=== PATIENT | male | born 1970 | race Caucasian/White ===

== ENCOUNTER 2016-04-27 01:15 | Emergency (ER) | payer SELFPAY ==
[2016-04-27] MEDS ORDERED: ASPIRIN 81 MG TABLET, CHEWABLE PO ONE (01:43)
[2016-04-27] MEDS ORDERED: KETOROLAC TROMETHAMINE INJ/PF 30 MG/1 ML SDV IV ONE (01:56)
[2016-04-27] MEDS ORDERED: OXYCODONE-ACETAMINOPHEN 5-325 MG TABLET PO ONE (01:56)
--- NOTE | 2016-04-27 01:56 | ER Document Report ---
ED Extremity Problem, Upper - General Mode of Arrival: Ambulatory Information source: Patient TRAVEL OUTSIDE OF THE U.[place]. IN LAST 30 DAYS: No - HPI Patient complains to provider of: Pain, Shoulder Associated symptoms: Other - See above <ELVIN ANNE - Last Filed: 04/27/16 02:34> <PENNY VALVERDE - Last Filed: 04/27/16 05:47> - General Chief Complaint: Shoulder Pain Stated Complaint: RIGHT SHOULDER PAIN Notes: Patient is a 45-year-old [facility] right [facility] pain. Patient reports pain is chronic for the past 2 and half months, he was trying to make it to [place] without any help but that it got too much for him. Patient states that the pain radiates from his right shoulder down his right arm into his back and neck, he also reports the pain moves into his chest and that is only occasional. Patient also complains of numbness and tingling in his right fingers. 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 (ELVIN ANNE) - Related Data Allergies/Adverse Reactions: No Known Allergies Allergy (Verified 01/03/16 08:12) Past Medical History - General Information source: Patient - Social History Smoking Status: Never Smoker Chew tobacco use (# tins/day): No Frequency of alcohol use: None Drug Abuse: None Family History: Reviewed & Not Pertinent Patient has suicidal ideation: No Patient has homicidal ideation: No - Past Medical History Cardiac Medical History: Reports: Hx Hypertension - Immunizations Hx Diphtheria, Pertussis, Tetanus Vaccination: Yes <ELVIN ANNE - Last Filed: 04/27/16 02:34> Review of Systems - Review of Systems Constitutional: No symptoms reported EENT: No symptoms reported Cardiovascular: See HPI, Chest pain Respiratory: No symptoms reported Gastrointestinal: No symptoms reported Genitourinary: No symptoms reported Male Genitourinary: No symptoms reported Musculoskeletal: See HPI, Back pain, Joint pain - Right shoulder Skin: No symptoms reported Hematologic/Lymphatic: No symptoms reported Neurological/Psychological: No symptoms reported -: Yes All other systems reviewed and negative <ELVIN ANNE - Last Filed: 04/27/16 02:34> Physical Exam - Vital signs Interpretation: Normal - General General appearance: Appears well, Alert - HEENT Head: Normocephalic, Atraumatic - Respiratory Respiratory status: No respiratory distress Chest status: Nontender, Tender - Right anterior chest wall tender to palpation Breath sounds: Normal Chest palpation: Normal - Cardiovascular Rhythm: Regular Heart sounds: Normal auscultation Murmur: No - Extremities General lower extremity: Normal inspection, Normal ROM, Normal strength, Normal weight bearing Shoulder: Tender - Right media scapula tender to palption - Neurological Neuro grossly intact: Yes Cognition: Normal Orientation: AAOx4 Jl Coma Scale Eye Opening: Spontaneous Jl Coma Scale Verbal: Oriented Jl Coma Scale Motor: Obeys Commands Jl Coma Scale Total: 15 Speech: Normal Motor strength normal: LUE, RUE, LLE, RLE 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 Sensory: Normal - Psychological Associated symptoms: Normal mood, Other - Odd affect, patient giggles in room - Skin Skin Temperature: Warm Skin Moisture: Dry Skin Color: Normal <ELVIN ANNE - Last Filed: 04/27/16 02:34> Course <ELVIN ANNE - Last Filed: 04/27/16 02:34> - Laboratory Result Diagrams: 04/27/16 02:25 04/27/16 02:25 - Diagnostic Test Radiology reviewed: Reports reviewed - EKG Interpretation by Ks EKG shows normal: Sinus rhythm Rate: Normal Rhythm: NSR <PENNY VALVERDE - Last Filed: 04/27/16 05:47> - Re-evaluation Re-evalutation: 04/27/16 05:46 Patient with no acute findings on x-rays. Troponin negative 2. Of note the patient is intoxicated. Patient will be discharged home and is to follow-up with his doctor. Symptoms are likely from repetitive motion injury. Patient is otherwise neurovascularly intact with no deficits. Stable for discharge. ( PENNY VALVERDE) - Vital Signs Vital signs: Temp Pulse Resp BP Pulse Ox 97.9 F 100 18 168/95 H 96 04/27/16 01:30 04/27/16 01:30 04/27/16 01:30 04/27/16 01:30 04/27/16 01:30 (ELVIN ANNE) (PENNY VALVERDE) - Laboratory Laboratory results interpreted by ia: 04/27/16 04/27/16 02:25 02:25 RBC 4.27 L MCH 34.5 H Sodium 134.0 L Chloride 94 L Glucose 118 H Creatine Kinase 212 H (PENNY VALVERDE) Discharge <ELVIN ANNE - Last Filed: 04/27/16 02:34> <PENNY VALVERDE - Last Filed: 04/27/16 05:47> - Discharge Clinical Impression: Shoulder pain, Atypical chest pain, Alcohol intoxication Condition: Stable Disposition: HOME, SELF-CARE Instructions: Chest Wall Pain ([facility]), Shoulder Injury ([facility]), Radiculopathy ([facility]) Prescriptions: Oxycodone HCl/Acetaminophen [Percocet 5-325 mg Tablet] 1 - 2 tab PO Q4H PRN #15 tablet PRN Reason: Referrals: ARELI MUSTAFA MD [Primary Care Provider] - Follow up as needed Scribe Documentation - Scribe Written by Scribe:: janel Calloway, 04/27/16, 0219 acting as scribe for :: Nile <ELVIN ANNE - Last Filed: 04/27/16 02:34>
[2016-04-27 02:42] LABS: ABSOLUTE EOSINOPHILS # (AUTO) 0.1 10^3/uL (0.0-0.6); ABSOLUTE LYMPHOCYTES (AUTO) 1.6 10^3/uL (0.5-4.7); ABSOLUTE MONOCYTES (AUTO) 0.7 10^3/uL (0.1-1.4); ABSOLUTE NEUT (AUTO) 4.5 10^3/uL (1.7-8.2); BASOPHILS % (AUTO) 0.5 % (0-2); EOSINOPHILS % (AUTO) 1.2 % (0-6); HEMATOCRIT 41.5 % (37.9-51.0); HEMOGLOBIN 14.7 g/dL (13.5-17.0); HGB HCT DIFFERENCE 2.6; LYMPHOCYTES % (AUTO) 23.2 % (13-45); MEAN CORPUSCULAR HEMOGLOBIN 34.5 pg (27.0-33.4); MEAN CORPUSCULAR HGB CONC 35.6 g/dL (32.0-36.0); MEAN CORPUSCULAR VOLUME 97 fl (80-97); RED BLOOD COUNT 4.27 10^6/uL (4.35-5.55); RED CELL DISTRIBUTION WIDTH 11.8 % (11.5-14.0); SEGMENTED NEUTROPHILS % (AUTO) 65.1 % (42-78); WHITE BLOOD COUNT 6.9 10^3/uL (4.0-10.5)
[2016-04-27 02:59] LABS: ALANINE AMINOTRANSFERASE 41 U/L (21-72); ALBUMIN 4.4 g/dL (3.5-5.0); ALCOHOL 228 mg/dL (NONE DETECTED); ALKALINE PHOSPHATASE 65 U/L (38-126); ANION GAP 15 (5-19); ASPARTATE AMINO TRANSFERASE 50 U/L (17-59); BILIRUBIN,TOTAL 0.8 mg/dL (0.2-1.3); BLOOD UREA NITROGEN 14 mg/dL (7-20); CALCIUM 9.6 mg/dL (8.4-10.2); CARBON DIOXIDE 25 mmol/L (22-30); CHLORIDE 94 mmol/L (98-107); CREATINE KINASE 212 U/L (55-170); CREATININE RESULT 1.03 mg/dL (0.52-1.25); GLUCOSE 118 mg/dL (75-110); TOTAL PROTEIN 7.6 g/dL (6.3-8.2)
[2016-04-27 03:10] LABS: CREATINE KINASE MB 1.55 ng/mL (<4.55)
[2016-04-27 03:11] LABS: TROPONIN I < 0.012 ng/mL
[2016-04-27 05:54] VITALS: BP 165/109
--- NOTE | 2016-04-27 11:08 | EKG REPORT ---
SEVERITY:- NORMAL ECG - SINUS RHYTHM : Confirmed by: Guerrero Weiner MD 27-Apr-2016 11:08:07
== END 2016-04-27 05:53 | disposition home or self-care (01) ==
LOC: ER 01:15
DX: M25.511 Pain in right shoulder (principal); R07.89 Other chest pain; F10.120 Alcohol abuse with intoxication, uncomplicated; G89.29 Other chronic pain; M79.601 Pain in right arm; M54.9 Dorsalgia, unspecified; M54.2 Cervicalgia; R20.0 Anesthesia of skin
CPT/HCPCS: 93005; 99285; 96374; 36415; 82553; 80307; 82550; 85025; 80053; 84484; 72050; 71020; 73030; 93010; J1885

== ENCOUNTER 2016-09-23 14:15 | Emergency (ER) | payer BC ==
[2016-09-23] MEDS ORDERED: LOSARTAN POTASSIUM 25 MG TABLET PO ONE (16:05)
--- NOTE | 2016-09-23 16:05 | ER Document Report ---
ED Medical Screen (RME) - General Chief Complaint: Breathing Difficulty Stated Complaint: DIFFICULTY BREATHING Time Seen by Provider: 09/23/16 15:57 Mode of Arrival: Ambulatory Information source: Patient TRAVEL OUTSIDE OF THE [place]. IN LAST 30 DAYS: No - HPI Patient complains to provider of: Difficulty breathing, dizziness Onset: Other - 5 days Notes: 09/23/16 16:04 Patient is a 45-year-old male with a history of hypertension and depression, who presents to the emergency room complaining of difficulty breathing that has been going on intermittently for the past 4-5 days and is associated with nausea , dizzy spells, and shaking, today while at work he got cold and clammy during 1 of these episodes prompting coworkers to send him to the emergency room for evaluation, patient did not take his hypertensive medication this morning because he was not at home in the morning to take it, he is not a smoker, he does drink daily, last drink was sometime yesterday evening - Related Data Allergies/Adverse Reactions: No Known Allergies Allergy (Verified 09/23/16 14:26) Past Medical History - Past Medical History Cardiac Medical History: Reports: Hx Hypertension Denies: Hx Coronary Artery Disease, Hx Heart Attack Pulmonary Medical History: Denies: Hx Asthma, Hx Bronchitis, Hx COPD, Hx Pneumonia Neurological Medical History: Denies: Hx Cerebrovascular Accident, Hx Seizures Renal/ Medical History: Denies: Hx Peritoneal Dialysis Musculoskeltal Medical History: Denies Hx Arthritis - Immunizations Hx Diphtheria, Pertussis, Tetanus Vaccination: Yes Physical Exam - Vital signs Vitals: Temp Pulse Resp BP Pulse Ox 98.1 F 105 H 18 180/106 H 99 09/23/16 14:26 09/23/16 14:26 09/23/16 14:09/23/16 14:26 09/23/16 14:26 Course - Vital Signs Vital signs: Temp Pulse Resp BP Pulse Ox 98.1 F 105 H 18 180/106 H 99 09/23/16 14:26 09/23/16 14:26 09/23/16 14:26 09/23/16 14:26 09/23/16 14:26
[2016-09-23 16:32] LABS: ABSOLUTE LYMPHOCYTES (AUTO) 0.8 10^3/uL (0.5-4.7); ABSOLUTE MONOCYTES (AUTO) 0.8 10^3/uL (0.1-1.4); ABSOLUTE NEUT (AUTO) 9.5 10^3/uL (1.7-8.2); BASOPHILS % (AUTO) 0.2 % (0-2); EOSINOPHILS % (AUTO) 0.1 % (0-6); HEMATOCRIT 50.3 % (37.9-51.0); HEMOGLOBIN 17.1 g/dL (13.5-17.0); LYMPHOCYTES % (AUTO) 6.8 % (13-45); MEAN CORPUSCULAR HEMOGLOBIN 33.2 pg (27.0-33.4); MEAN CORPUSCULAR VOLUME 98 fl (80-97); MONOCYTES % (AUTO) 7.2 % (3-13); RED BLOOD COUNT 5.15 10^6/uL (4.35-5.55); SEGMENTED NEUTROPHILS % (AUTO) 85.7 % (42-78); WHITE BLOOD COUNT 11.1 10^3/uL (4.0-10.5)
--- NOTE | 2016-09-23 16:43 | RADIOLOGY REPORT (SQ) ---
EXAM DESCRIPTION: CHEST PA/LAT COMPLETED DATE/TIME: 09/23/2016 4:36 pm REASON FOR STUDY: db COMPARISON: 04/27/2016. EXAM PARAMETERS: NUMBER OF VIEWS: two views TECHNIQUE: Digital Frontal and Lateral radiographic views of the chest acquired. RADIATION DOSE: NA LIMITATIONS: none FINDINGS: LUNGS AND PLEURA: No opacities, masses or pneumothorax. No pleural effusion. MEDIASTINUM AND HILAR STRUCTURES: No masses or contour abnormalities. HEART AND VASCULAR STRUCTURES: Heart normal size. No evidence for failure. BONES: No acute findings. HARDWARE: None in the chest. OTHER: No other significant finding. IMPRESSION: NO SIGNIFICANT RADIOGRAPHIC FINDING IN THE CHEST. TECHNICAL DOCUMENTATION: JOB ID: [id number] [employer]- All Rights Reserved
[2016-09-23] MEDS ORDERED: LORAZEPAM 1 MG TABLET PO ONE (16:51)
--- NOTE | 2016-09-23 16:53 | ER Document Report ---
ED General - General Mode of Arrival: Ambulatory Information source: Patient TRAVEL OUTSIDE OF THE [place] IN LAST 30 DAYS: No - HPI Patient complains to provider of: Shortness of Breath Onset: Other - 4 days ago Associated symptoms: Other - see notes above <MARY ELLEN ROBERT - Last Filed: 09/23/16 17:17> <RAAD RUBIN - Last Filed: 09/23/16 18:52> - General Chief Complaint: Breathing Difficulty Stated Complaint: DIFFICULTY BREATHING Time Seen by Provider: 09/23/16 15:57 Notes: 45-year-old male with history of anxiety, depression, and hypertension presents to the ED complaining of shortness of breath and chest tightness has been present for the past 4 days. Patient reports that he has also been shaking increasingly. He has never felt like this before. Patient reports that when symptoms first started it felt like he was having a "panic attack". Patient comes in today after having a dizzy spell while at work. Patient is taking Losartan and reports to drinking 4-8 beers a day. PCP: [facility] (MARY ELLEN ROBERT) - Related Data Allergies/Adverse Reactions: No Known Allergies Allergy (Verified 09/23/16 14:26) Past Medical History - General Information source: Patient - Social History Smoking Status: Never Smoker Frequency of alcohol use: Heavy - 4-8 beers a day Family History: Reviewed & Not Pertinent Patient has suicidal ideation: No Patient has homicidal ideation: No - Past Medical History Cardiac Medical History: Reports: Hx Hypertension Neurological Medical History: Denies: Hx Cerebrovascular Accident, Hx Seizures Renal/ Medical History: Denies: Hx Peritoneal Dialysis Musculoskeltal Medical History: Denies Hx Arthritis Psychiatric Medical History: Reports: Hx Anxiety, Hx Depression - Immunizations Hx Diphtheria, Pertussis, Tetanus Vaccination: Yes <MARY ELLEN ROBERT - Last Filed: 09/23/16 17:17> Review of Systems - Review of Systems Constitutional: No symptoms reported EENT: No symptoms reported Cardiovascular: See HPI, Chest pain - 'tightness', Dizziness, Other Respiratory: See HPI, Short of breath Gastrointestinal: No symptoms reported Genitourinary: No symptoms reported Male Genitourinary: No symptoms reported Musculoskeletal: No symptoms reported Skin: No symptoms reported Hematologic/Lymphatic: No symptoms reported Neurological/Psychological: No symptoms reported -: Yes All other systems reviewed and negative <MARY ELLEN ROBERT - Last Filed: 09/23/16 17:17> Physical Exam - General General appearance: Alert, Other - Patient is anxious and is shaking on exam. In distress: None - HEENT Head: Normocephalic, Atraumatic Eyes: Normal Extraocular movements intact: Yes Pupils: PERRL - Respiratory Respiratory status: No respiratory distress Breath sounds: Normal - Cardiovascular Rhythm: Regular Heart sounds: Normal auscultation - Abdominal Inspection: Normal - Back Back: Normal - Extremities General upper extremity: Normal inspection, Normal ROM General lower extremity: Normal inspection, Normal ROM - Neurological Neuro grossly intact: Yes - Psychological Associated symptoms: Anxious - and shaking - Skin Skin Temperature: Warm Skin Moisture: Dry Skin Color: Normal <MARY ELLEN ROBERT - Last Filed: 09/23/16 17:17> Course - Laboratory Result Diagrams: 09/23/16 16:18 09/23/16 16:18 <ROBERTMARY ELLEN - Last Filed: 09/23/16 17:17> - Laboratory Result Diagrams: 09/23/16 16:18 09/23/16 16:18 - Diagnostic Test Radiology reviewed: Image reviewed, Reports reviewed - Chest x-ray is normal - EKG Interpretation by Al EKG shows normal: Sinus rhythm, [place], Intervals, QRS Complexes, ST-T Waves Rate: Normal - 98 Rhythm: NSR When compared to previous EKG there are: No significant change <RAAD RUBIN - Last Filed: 09/23/16 18:52> - Re-evaluation Re-evalutation: 09/23/16 18:48 Patient is feeling much better after the Ativan. Now smiling and talking with friends and family. His hemoglobin is 17.1 today, 5 months ago it was 14.7. Urine had greater than 80 ketones. He is advised to drink much more water now with the summer heat. ( RAAD RUBIN) - Vital Signs Vital signs: Temp Pulse Resp BP Pulse Ox 98.1 F 105 H 18 180/106 H 99 09/23/16 14:26 09/23/16 14:26 09/23/16 14:26 09/23/16 14:26 09/23/16 14:26 - Laboratory Laboratory results interpreted by me: 09/23/16 09/23/16 09/23/16 16:15 16:18 16:18 WBC 11.1 H Hgb 17.1 H MCV 98 H Seg Neutrophils % 85.7 H Lymphocytes % 6.8 L Absolute Neutrophils 9.5 H Anion Gap 21 H Calcium 10.3 H Direct Bilirubin 0.5 H AST 68 H ALT 73 H Creatine Kinase 268 H Total Protein 8.8 H Albumin 5.3 H Urine Protein 30 H Urine Ketones 80 H Discharge <MARY ELLEN ROBERT - Last Filed: 09/23/16 17:17> <RAAD RUBIN - Last Filed: 09/23/16 18:52> - Discharge Clinical Impression: Anxiety, Dehydration, Shortness of breath Chest pain Qualifiers: Chest pain type: unspecified Qualified Code(s): R07.9 - Chest pain, unspecified Condition: Stable Disposition: HOME, SELF-CARE Additional Instructions: Anxiety: The physician feels that some of your health problems are being caused by anxiety. Anxiety affects your health in many ways. Anxiety alone can cause palpitations, sweats, chest pains, abdominal pains, shortness of breath, and headaches. It contributes to ulcer disease, high blood pressure, irritable bowel syndrome, and has been shown to cause flare-ups of many other diseases. Anxiety is not a simple disorder to treat. If the anxiety is due to recent life stresses, you may simply need time to "work through" the changes. If the anxiety is due to an underlying unhappiness with yourself or due to psychiatric disturbance, professional help will be needed. Your physician can refer you for further help if needed. Anti-anxiety medication is occasionally given if the stress is acute or if you are having trouble sleeping. Chronic or frequent use of these medications is not a good idea because the body becomes reliant on it, preventing you from dealing with life's normal stresses. Dehydration: Dehydration can result from vomiting or diarrhea, fever, or decreased intake of fluids. If severe, hospitalization and intravenous fluids may be required. Most cases are treated at home with fluids by mouth. For the next 24 hours, drink lots of clear fluids. In mild cases, this can be soda pop or sports drinks. For more severe dehydration, the doctor may recommend special fluids such as Pedialyte or Lytren. Try to get three liters ( 3 quarts) of fluid per day. If vomiting occurs, continue to drink the fluids frequently (every 15 to 20 minutes), but in small amounts (one or two ounces). Depending on the type of dehydration, the doctor may prescribe antinausea medicine or potassium replacements. Call the doctor or return for re-examination if you become progressively weak, vomit repeatedly, or have other new symptoms. FOLLOW UP WITH YOUR DOCTOR ID NOT IMPROVING. DRINK PLENTY OF FLUIDS THROUGHOUT THE DAY EVERY DAY. RETURN TO THE EMERGENCY ROOM IF ANY NEW OR WORSENING SYMPTOMS. Referrals: ARELI MUSTAFA MD [Primary Care Provider] - Follow up as needed Scribe Attestation: 09/23/16 18:52 I personally performed the services described in the documentation, reviewed and edited the documentation which was dictated to the scribe in my presence, and it accurately records my words and actions. (RAAD RUBIN) Scribe Documentation - Scribe Written by Scribe:: Malorie Jay, 09/23/2016 1729 acting as scribe for :: Walter <MARY ELLEN ROBERT - Last Filed: 09/23/16 17:17>
[2016-09-23 17:03] LABS: ALANINE AMINOTRANSFERASE 73 U/L (21-72); ALBUMIN 5.3 g/dL (3.5-5.0); ALCOHOL < 10 mg/dL (NONE DETECTED); ALKALINE PHOSPHATASE 75 U/L (38-126); ASPARTATE AMINO TRANSFERASE 68 U/L (17-59); BILIRUBIN,DIRECT 0.5 mg/dL (0.0-0.4); BILIRUBIN,TOTAL 0.9 mg/dL (0.2-1.3); BLOOD UREA NITROGEN 13 mg/dL (7-20); CALCIUM 10.3 mg/dL (8.4-10.2); CARBON DIOXIDE 22 mmol/L (22-30); CHLORIDE 100 mmol/L (98-107); CREATINE KINASE 268 U/L (55-170); CREATININE RESULT 1.08 mg/dL (0.52-1.25); GLUCOSE 94 mg/dL (75-110); LIPASE 99.5 U/L (23-300); POTASSIUM 4.4 mmol/L (3.6-5.0); TOTAL PROTEIN 8.8 g/dL (6.3-8.2)
[2016-09-23 17:10] LABS: SODIUM 142.9 mmol/L (137-145)
[2016-09-23 17:13] LABS: ANION GAP 21 (5-19)
[2016-09-23 17:14] LABS: TROPONIN I < 0.012 ng/mL
--- NOTE | 2016-09-23 17:59 | EKG REPORT ---
SEVERITY:- NORMAL ECG - SINUS RHYTHM : Confirmed by: Ana Nguyen MD 23-Sep-2016 17:58:53
[2016-09-23 18:08] LABS: APPEARANCE,URINE SLIGHTLY-CLOUDY; BILIRUBIN,URINE NEGATIVE (NEGATIVE); GLUCOSE, URINE NEGATIVE (NEGATIVE); KETONES,URINE 80 mg/dL (NEGATIVE); LEUKOCYTE ESTERASE,URINE NEGATIVE (NEGATIVE); NITRITE,URINE NEGATIVE (NEGATIVE); PROTEIN,URINE 30 mg/dL (NEGATIVE); URINE SPECIFIC GRAVITY 1.024; UROBILINOGEN,URINE NEGATIVE mg/dL (<2.0)
[2016-09-23 18:18] LABS: URINE BARBITURATES SCREEN NEGATIVE; URINE METHADONE SCREEN NEGATIVE; URINE OPIATES LOW NEGATIVE; URINE PHENCYCLIDINE SCREEN NEGATIVE
[2016-09-23 19:03] VITALS: BP 168/108
[2016-09-23] MEDS ORDERED: CLONIDINE HCL 0.1 MG TABLET PO ONE (19:04)
== END 2016-09-23 19:10 | disposition home or self-care (01) ==
LOC: ER 14:15
DX: F41.9 Anxiety disorder, unspecified (principal); E86.0 Dehydration; R06.02 Shortness of breath; R07.9 Chest pain, unspecified; F32.9 Major depressive disorder, single episode, unspecified; I10 Essential (primary) hypertension; R42 Dizziness and giddiness; Z79.899 Other long term (current) drug therapy
CPT/HCPCS: 36415; 71020; 80053; 80307; 81001; 82550; 82553; 83690; 83880; 84484; 85025; 93005; 93010; 99285

== ENCOUNTER 2017-06-14 21:38 | Emergency (ER) | payer OTHER, BC ==
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
[2017-06-15 14:38] VITALS: BP 157/94
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
== END 2017-06-15 14:30 | disposition home or self-care (01) ==
LOC: ER 21:38
DX: Z04.1 Encounter for examination and observation following transport accident (principal); V48.5XXA Car driver injured in noncollision transport accident in traffic accident, initial encounter; M79.642 Pain in left hand; M79.89 Other specified soft tissue disorders; F10.129 Alcohol abuse with intoxication, unspecified; I10 Essential (primary) hypertension; F17.200 Nicotine dependence, unspecified, uncomplicated; G58.9 Mononeuropathy, unspecified; F41.9 Anxiety disorder, unspecified; F32.9 Major depressive disorder, single episode, unspecified; Z79.899 Other long term (current) drug therapy
CPT/HCPCS: 99285; 73130; 70450; 72125; L0120